=== PATIENT | male | born 1955 | race Caucasian/White ===

== ENCOUNTER 2020-11-19 06:46 | Day surgery (SDC) | payer MEDICARE ==
[~2020-11-19] VITALS: Ht 180 cm; Wt 157.1 kg
[~2020-11-19 06:46] MED LIST: ASPI325 PO; Percocet 5-3251 EACH PO; XARELTO10 MG PO
--- NOTE | 2020-11-19 07:56 | NUR ---
Ambulatory in Day Surgery History, Chart, Medications and Allergies reviewed before start of procedure.Patient confirms NPO status and agrees with scheduled surgery. Patient reports completing Chlorhexadine shower X2 prior to admission to hospital.Surgical site prepped with 2% Chlorhexidine cloth wipe.
--- NOTE | 2020-11-19 16:52 | NUR ---
OTHER RN GIVEN REPORT SHE IS TAKING OVER CARE AT THIS TIME.
--- NOTE | 2020-11-20 04:14 | NUR ---
SHIFT SUMMARY: PT POD#1 FOR RT TKA. PT DENIES N/T THROUGHOUT. TEO WRAP DRESSING C/D/I WITH POLAR PACK IN PLACE. PAIN MANAGED WITH 5MG OXY AND SCHEDULED TORADOL AND TYLENOL. PT OUT OF BED TO BATHROOM WITH SBA+FWW/GB. TOLERATING ACTIVITY WELL. VOIDING AND RAFAEL PO. NO CONCERNS AT THIS TIME. PLAN FOR PHYSICAL THERAPY AND POSSIBLE DISCHARGE HOME.
[2020-11-20 04:16] LABS: BASOPHILS ABSOLUTE AUTO 0.01 K/mm3 (0.00-0.23); BASOPHILS PERCENT AUTO 0 % (0-2); EOSINOPHILS PERCENT AUTO 0 % (0-6); Hematocrit 36.9 % (37.0-53.0); Hemoglobin 11.2 g/dL (13.5-17.5); IMMATURE GRAN ABSOLUTE AUTO 0.06 K/mm3 (0.00-0.10); IMMATURE GRAN PERCENT AUTO 1 % (0-1); LYMPHOCYTES ABSOLUTE AUTO 1.02 K/mm3 (0.84-5.20); LYMPHOCYTES PERCENT AUTO 8 % (21-46); MONOCYTES ABSOLUTE AUTO 0.88 K/mm3 (0.16-1.47); MONOCYTES PERCENT AUTO 7 % (4-13); Mean Corpuscular HGB 27.5 pg (26.0-34.0); Mean Corpuscular HGB Conc 30.4 g/dL (31.5-36.5); Mean Corpuscular Volume 90 fL (80-100); NEUTROPHILS ABSOLUTE AUTO 10.85 K/mm3 (1.96-9.15); NEUTROPHILS PERCENT AUTO 85 % (41-73); Platelet Count 234 K/mm3 (150-400); RDW Coefficient Variation 14.9 % (11.7-14.2); RDW Standard Deviation 49.2 fL (35.1-46.3); Red Blood Cell Count 4.08 M/mm3 (4.30-5.90); White Blood Cell Count 12.82 K/mm3 (4.00-11.30)
[2020-11-20 04:33] LABS: Anion Gap 5 mmol/L (6-16); Blood Urea Nitrogen 17 mg/dL (8-24); Bun/Creatinine Ratio 22.9 (12.0-20.0); CO2, Blood 30 mmol/L (21-32); Calcium, Blood 8.3 mg/dL (8.5-10.1); Chloride, Blood 109 mmol/L (98-108); Creatinine, Blood 0.74 mg/dL (0.60-1.20); Glomerular Filtration Rate >60 (60-); Glucose, Blood 115 mg/dL (70-99); Potassium, Blood 4.5 mmol/L (3.5-5.5); Sodium, Blood 144 mmol/L (136-145)
--- NOTE | 2020-11-20 08:30 | NUR ---
DR GOODMAN BEEN HERE TO SEE PT.
[2020-11-20] MEDS ORDERED: Percocet 5-3251 EACH PO (10:19)
[2020-11-20] MEDS ORDERED: XARELTO20 MG PO (10:20)
--- NOTE | 2020-11-20 10:52 | NUR ---
DISCHARGE: PT EATING AND DRINKING, VOIDING, PASSING GAS. PT PAIN CONTROLLED ON PO PAIN MEDICATION. PT REPORTS UNDERSTANDING OF DISCHARGE INSTRUCTIONS. PT CLEARED THERAPY TO GO HOME. PT SENT WITH DRESSING SUPPLIES, SCRIPT AND PAPERWORK. PT REPORTS HAVING WALKER AT HOME. PT SENT WITH ICE MACHINE.
== END 2020-11-20 11:28 | disposition home or self-care (01) ==
LOC: ORSCMMR 06:46 → ORD 08:15 → ORSCMMR 08:15 → SURS 12:00 → ORSCMMR 11-20 11:28
PROVIDERS: Orthopaedic Surgery
PROC: 0SRC0JA Replacement of Right Knee Joint with Synthetic Substitute, Uncemented, Open Approach (ICD-10-PCS; principal; 2020-11-19 08:15)
PROC: 8E0Y0CZ Robotic Assisted Procedure of Lower Extremity, Open Approach (ICD-10-PCS; principal; 2020-11-19 08:15)
DX: M17.11 Unilateral primary osteoarthritis, right knee (principal); Z23 Encounter for immunization; I10 Essential (primary) hypertension; G47.33 Obstructive sleep apnea (adult) (pediatric); E66.01 Morbid (severe) obesity due to excess calories; Z68.42 Body mass index [BMI] 45.0-49.9, adult
CPT/HCPCS: 27447; S2900; 36415; 73560-RT; 80048; 85025; 88300; 97110; 97110-CQ; 97116; 97116-CQ; 97162; 97530-CQ; A9270; C1776; G0008; J0171; J0690; J0735; J1100; J1885; J2250; J2370; J2405; J2704; J2795; J3010; J7120; Q2038